=== PATIENT | male | born 1975 | race Caucasian/White ===

== ENCOUNTER 2019-10-18 12:15 | Emergency (ER) | payer OTHER ==
[~2019-10-18] VITALS: Ht 185.4 cm; Wt 102.3 kg
[2019-10-18 12:21] VITALS: Ht 185.4 cm; Wt 102.3 kg
[2019-10-18] MEDS ORDERED: SILVADENE20 GM TP (15:56)
[2019-10-18] MEDS ORDERED: HYDROCODON-ACE1 EAC2 PO (15:56)
[2019-10-18 16:10] VITALS: BP 132/86
== END 2019-10-18 16:12 | disposition home or self-care (01) ==
LOC: D.ER 12:15
DX: S42.101A Fracture of unspecified part of scapula, right shoulder, initial encounter for closed fracture (principal); T14.8XXA Other injury of unspecified body region, initial encounter; V20.0XXA Motorcycle driver injured in collision with pedestrian or animal in nontraffic accident, initial encounter; Y93.9 Activity, unspecified; Y92.9 Unspecified place or not applicable